=== PATIENT | female | born 1990 | race Caucasian/White ===

== ENCOUNTER → 2019-03-05 07:34 | Outpatient (CLI) | payer OTHER, SELFPAY ==
--- NOTE | 2019-03-05 | DI.MRI.S_ITS ---
PROCEDURE: MR KNEE RT WO CON INDICATIONS: Pain in unspecified knee TECHNIQUE: Noncontrast sagittal PD fast spin echo and T2 fast spin echo with fat saturation, sagittal 3-D FLASH with fat saturation; coronal T1 spin echo and PD fast spin echo with fat saturation, and axial PD fast spin echo with fat saturation through the knee. COMPARISON: None. FINDINGS: Image quality: Excellent. Menisci: The medial and lateral menisci demonstrate normal morphology and internal signal. The meniscal root ligaments appear intact. Cruciate ligaments: The anterior and posterior cruciate ligaments appear intact. Medial structures: The medial collateral ligament appears intact. The posterior oblique ligament, semimembranosus tendon insertions, oblique popliteal ligament, and meniscocapsular junction appear intact. Visualized portions of the pes anserinus tendons appear normal. No abnormal bursal fluid. Lateral structures: The lateral collateral ligament, long and short heads of the biceps femoris tendon appear intact. The popliteus tendon appears normal; the popliteofibular ligament appears intact. The posterosuperior and anteroinferior popliteomeniscal fascicles appear intact. The arcuate and fabellofibular ligaments appear intact, on either side of the lateral inferior geniculate artery. Iliotibial band appears normal. Anterior structures: The quadriceps and patellar tendons appear intact. Patella stacey with TL/PL ratio 1.45. Patellar is laterally subluxed. There is mild edema of the medial patellar retinaculum. The femoral trochlear groove is shallow dysplasia. There is mild edema in the infrapatellar fat pad. Bones and cartilage: No bone marrow contusions or fractures. Mild chondromalacia patella. cartilage of the medial and lateral femorotibial compartments, as well as the patellofemoral compartment, appears normal in thickness. Joint space: There is small knee joint effusion. No Schwab's cyst. Normal appearing synovial plicae are incidentally noted. IMPRESSION: 1. Patella stacey and superior lateral subluxation of patella. 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 2. Mild edema of the infrapatellar fat pad, suggesting infrapatellar fat pad impingement. 3. Small knee joint effusion. Dictated by: Beatriz Simeon M.D. on 03/05/2019 at 9:48 Approved by: Beatriz Simeon M.D. on 03/05/2019 at 18:17
--- NOTE | 2019-03-05 | DI.MRI.S_ITS ---
PROCEDURE: MR KNEE LT WO CON INDICATIONS: Pain in unspecified knee TECHNIQUE: Noncontrast sagittal PD fast spin echo and T2 fast spin echo with fat saturation, sagittal 3-D FLASH with fat saturation; coronal T1 spin echo and PD fast spin echo with fat saturation, and axial PD fast spin echo with fat saturation through the knee. COMPARISON: None. FINDINGS: Image quality: Excellent. Menisci: The medial and lateral menisci demonstrate normal morphology and internal signal. The meniscal root ligaments appear intact. Cruciate ligaments: The anterior and posterior cruciate ligaments appear intact. Medial structures: The medial collateral ligament appears intact. The posterior oblique ligament, semimembranosus tendon insertions, oblique popliteal ligament, and meniscocapsular junction appear intact. Visualized portions of the pes anserinus tendons appear normal. No abnormal bursal fluid. Lateral structures: The lateral collateral ligament, long and short heads of the biceps femoris tendon appear intact. The popliteus tendon appears normal; the popliteofibular ligament appears intact. The posterosuperior and anteroinferior popliteomeniscal fascicles appear intact. The arcuate and fabellofibular ligaments appear intact, on either side of the lateral inferior geniculate artery. Iliotibial band appears normal. Anterior structures: The quadriceps and patellar tendons appear intact. There is patella stacey with TL/PL ratio 1.45. There is superior lateral subluxation/dislocation of patella. There is type C femoral trochlear with prominent lateral facet and hypoplastic medial facet. Tibial tubercle to trochlear groove distance (TT-TG) measures 21 mm. The cochlea depth is normal at 8 mm. There is mild increased T2 signal of the medial patellar retinaculum. Mild edema is present in the infrapatellar fat pad. Bones and cartilage: No fractures. Mild edema in patella and femoral trochlear. There is chondromalacia patella. Joint space: There is trace knee joint fluid. No Schwab's cyst. Normal appearing synovial plicae are incidentally noted. IMPRESSION: 1. 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 2. Mild infrapatellar fat pad edema suggesting impingement. 3. Chondromalacia patella. Dictated by: Beatriz Simeon M.D. on 03/05/2019 at 10:03 Approved by: Beatriz Simeon M.D. on 03/05/2019 at 18:19
== END ==
PROVIDERS: Visit Provider Anesthesiology Pain Medicine
DX: M25.561 Pain in right knee (principal); M25.562 Pain in left knee; S83.011A Lateral subluxation of right patella, initial encounter; S83.012A Lateral subluxation of left patella, initial encounter; M25.461 Effusion, right knee
CPT/HCPCS: 73721

== ENCOUNTER → 2020-02-24 13:45 | Outpatient (CLI) | payer OTHER, SELFPAY ==
[2020-02-25 17:27] LABS: Rubella Antibody IgG 15.8 IU/mL (>15)
[2020-02-27 10:08] LABS: Chlamydia trachomatis Negative (Negative); Mycoplasma genitalium Negative (Negative); Neisseria gonorrhoeae Negative (Negative)
== END ==
PROVIDERS: Referring Provider Obstetrics & Gynecology; Visit Provider Obstetrics & Gynecology
DX: Z00.00 Encounter for general adult medical examination without abnormal findings (principal)
CPT/HCPCS: 36415; 84443; 86762; 86787; 87491; 87591

== ENCOUNTER → 2023-01-23 15:44 | Outpatient (CLI) | payer OTHER, SELFPAY ==
--- NOTE | 2023-01-23 15:48 | DI.RAD.S_ITS ---
PROCEDURE: XR SKULL<4V INDICATIONS: 5 cm mass on Rt frontal scalp TECHNIQUE: 2 view(s) of the skull acquired. Palpable area of concern was marked with skin BB marker COMPARISON: None. FINDINGS: Bones: No fractures. No suspicious bony lesions. Visualized sinuses appear clear. Soft tissues: No soft tissue calcifications. No suspicious soft tissue densities. IMPRESSION: Unremarkable skull radiographs. Approved by: Jorge Arguello M.D. on 01/23/2023 at 17:36
== END ==
PROVIDERS: Referring Provider Dermatology; Visit Provider Dermatology
DX: L57.8 Other skin changes due to chronic exposure to nonionizing radiation (principal); X32.XXXA Exposure to sunlight, initial encounter; D23.61 Other benign neoplasm of skin of right upper limb, including shoulder; D48.5 Neoplasm of uncertain behavior of skin
CPT/HCPCS: 70250

== ENCOUNTER → 2023-03-29 08:26 | Outpatient (CLI) | payer OTHER, SELFPAY ==
--- NOTE | 2023-03-29 08:27 | DI.RAD.S_ITS ---
PROCEDURE: HL HYSTEROSAPINGOGRAPHY INDICATIONS: Infertility COMPARISON: None. FINDINGS: Patient had a documented negative test prior to the study. Following speculum insertion, a balloon-tip catheter was inserted into the cervical canal, and secured by inflating the balloon. Contrast was then injected into the endometrial canal. Uterus: The uterine cavity appears normal in size and morphology, without synechiae or masses. Fallopian tubes: Both fallopian tubes fill with contrast, and appear normal in caliber and morphology. There is ready dispersion of contrast into the peritoneal cavity. IMPRESSION: Normal hysterosalpingogram Dictated by: Bandar Back M.D. on 03/29/2023 at 9:34 Approved by: Bandar Back M.D. on 03/29/2023 at 9:34
--- NOTE | 2023-03-29 20:45 | P.PCN_ITS ---
Procedures Date/Time Date of procedure: 03/29/23 Time of procedure: 09:30 General Procedure description: Hysterosalpingogram After informed consent was obtained, the patient was placed on the table with her bottom on an overturned bedpan. A bivalve speculum was placed into the vagina. The cervix was cleaned x3 with Betadine. A single-tooth tenaculum was placed on the anterior lip of the cervix. The hysterosalpingogram catheter pass ed easily into the endometrial cavity and 3 cc of air was placed into the balloon. The bivalve speculum was removed from the vagina. 20 cc of Isovue-300 were injected through the HSG catheter under direct fluoroscopic examination. There was fill of the uterine cavity which appeared normal. There was spill from both tubes. The contrast was removed from the uterus. The balloon was deflated and the HSG catheter were removed without difficulty. The single-tooth tenaculum was removed from the anterior lip of the cervix. The patient was taken off of the bedpan. The patient tolerated the procedure well. Complications: none
--- NOTE | 2023-04-03 09:33 | P.PCN_ITS ---
Procedures Date/Time Date of procedure: 03/29/23 Time of procedure: 13:30 General Procedure description: Hysterosalpingogram After informed consent was obtained, the patient was placed on the fluoroscopy table on an overturned bedpan. An open sided speculum was placed into the vagina. The cervix was cleaned x3 with Betadine. A single-tooth tenaculum was placed on the anterior lip of the cervix. The HSG catheter passed easily into t he endometrial cavity and 3 cc of air were injected into the balloon. The open sided speculum was removed. Under direct fluoroscopic examination, 20 cc of [id number]-300 were injected. There were normal contours of the uterus. There was spill from both tubes. The remainder of contrast were removed from the uterus. The HSG catheter was deflated and removed without difficulty. The single-tooth tenaculum was removed from the anterior lip of the cervix. The patient was taken off of the overturned bedpan. Sponge, lap, and instrument counts were correct x2. The patient tolerated the procedure fairly well. Complications: none
== END ==
PROVIDERS: Referring Provider Obstetrics & Gynecology; Visit Provider Obstetrics & Gynecology
DX: Z31.69 Encounter for other general counseling and advice on procreation (principal); N97.9 Female infertility, unspecified; N80.9 Endometriosis, unspecified; Z98.890 Other specified postprocedural states
CPT/HCPCS: 58340; 74740

== ENCOUNTER → 2023-03-31 15:56 | Outpatient (CLI) | payer OTHER, SELFPAY ==
--- NOTE | 2023-03-31 16:01 | DI.RAD.S_ITS ---
PROCEDURE: XR CHEST 2V INDICATIONS: cough TECHNIQUE: 2 views of the chest were acquired. COMPARISON: None. FINDINGS: Surgical changes and devices: None. Lungs and pleura: Lungs are clear. No pleural effusions or pneumothorax. Mediastinum: Mediastinal contours are normal. Heart size is normal. Bones and chest wall: No suspicious bony abnormalities. Soft tissues appear unremarkable. IMPRESSION: No acute cardiopulmonary process. Dictated by: Bandar Back M.D. on 03/31/2023 at 18:27 Approved by: Bandar Back M.D. on 03/31/2023 at 18:27
== END ==
PROVIDERS: Referring Provider Nurse Practitioner Family; Visit Provider Nurse Practitioner Family
DX: R05.9 Cough, unspecified (principal)
CPT/HCPCS: 71046

== ENCOUNTER → 2023-12-07 14:09 | Outpatient (CLI) | payer OTHER, SELFPAY ==
[2023-12-07 14:52] LABS: Influenza A - CEPHEID Flu A POSITIVE (NEGATIVE); Influenza B - CEPHEID Flu B NEGATIVE (NEGATIVE); Respiratory Syncytial Virus Negative (Negative)
[2023-12-07 15:23] LABS: COVID-19 CEPHEID 4-PLEX PCR Negative (Negative)
== END ==
PROVIDERS: Visit Provider Registered Nurse
DX: R05.1 Acute cough (principal)
CPT/HCPCS: 0241U

== ENCOUNTER → 2024-03-11 09:02 | Outpatient (CLI) | payer OTHER, SELFPAY ==
[2024-03-11 10:36] LABS: Hemoglobin A1C% w Est Avg Glu 4.9 % (4.0-6.0)
[2024-03-11 10:46] LABS: Cholesterol 165 mg/dL (140-199); HDL Cholesterol 40 mg/dL (40-60); LDL Cholesterol Calculated 98 mg/dL (<100); Triglycerides 137 mg/dL (35-150)
[2024-03-11 11:01] LABS: T4 Total Thyroxine 7.19 ug/dL (5.5-11.0)
[2024-03-11 11:15] LABS: Thyroid Stimulating Hormone 0.587 uIU/mL (0.47-4.68)
== END ==
LOC: LAB 09:03
PROVIDERS: PCP Family Medicine; Referring Provider Family Medicine; Visit Provider Family Medicine
DX: E66.9 Obesity, unspecified (principal)
CPT/HCPCS: 36415; 80061; 83036; 84436; 84443

== ENCOUNTER → 2024-04-08 08:34 | Outpatient (CLI) | payer OTHER, SELFPAY ==
[2024-04-12 22:11] LABS: QuantiFERON Mitogen Value >10.00 IU/mL (.); QuantiFERON Nil Value 0.04 IU/mL (.); QuantiFERON TB Gold Plus Negative (Negative); QuantiFERON TB1 Ag Value 0.05 IU/mL (.); QuantiFERON TB2 Ag Value 0.09 IU/mL (.)
== END ==
PROVIDERS: PCP Family Medicine; Referring Provider Family Medicine; Visit Provider Family Medicine
DX: Z11.9 Encounter for screening for infectious and parasitic diseases, unspecified (principal)
CPT/HCPCS: 36415; 86480

== ENCOUNTER → 2025-07-13 18:56 | Outpatient (CLI) | payer OTHER, SELFPAY ==
[2025-07-13 19:51] LABS: COVID-19 CEPHEID 4-PLEX PCR Negative (Negative); Influenza A - CEPHEID Flu A NEGATIVE (NEGATIVE); Influenza B - CEPHEID Flu B NEGATIVE (NEGATIVE)
== END ==
PROVIDERS: Visit Provider Nurse Practitioner Family
DX: R05.1 Acute cough (principal)
CPT/HCPCS: 87637

== ENCOUNTER → 2025-09-29 18:32 | Outpatient (ROUT) | payer OTHER, SELFPAY ==
[2025-09-29 18:57] LABS: Add Manual Diff / Slide Review NO; Hematocrit 38.8 % (36-46); Hemoglobin 13.5 g/dL (12.0-16.0); Lymphocytes Absolute Auto 1900 /uL (1100-4500); Mean Corpuscular HGB Conc 34.8 % (30-36); Mean Corpuscular Hemoglobin 31.1 PG (26-34); Mean Corpuscular Volume 89.2 fL (80-100); Platelet Count 239 X10^3/uL (150-400)
[2025-09-29 19:10] LABS: HEMOLYSIS < 15 (0-50); Iron 57 ug/dL (37-170)
[2025-09-29 19:20] LABS: Percent Iron Saturation 25 % (15-50); Total Iron Binding Capacity 229 ug/dL (265-497); Transferrin 182 mg/dL (206-381)
[2025-09-29 19:47] LABS: Ferritin 93 ng/mL (6-137)
== END ==
PROVIDERS: Visit Provider Family Medicine
DX: R55 Syncope and collapse (principal); R53.83 Other fatigue; N92.0 Excessive and frequent menstruation with regular cycle; R20.9 Unspecified disturbances of skin sensation
CPT/HCPCS: 82728; 83540; 83550; 85025